=== PATIENT | male | born 1985 | race African-American/Black ===

== ENCOUNTER 2024-11-18 09:28 | Inpatient (IN) | payer MEDICAID, OTHER ==
[~2024-11-18] VITALS: Ht 177.8 cm; Wt 111.0 kg
--- NOTE | 2024-11-18 09:39 | ECG ---
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
--- NOTE | 2024-11-18 10:07 | ED.PDOC ---
HPI Comments 38 y.o male with PMHx of chronic back and hip pain, presents to the ED for a chief complaint of substernal chest pain associated with SOB that started 2-3 days ago. Patient describes pain as sharp and is intermittent. Patient noticed pain presents when he takes Percocet for his chronic pain and noticed his BP increases as well. Patient denies any fever, chills, leg swelling, or recent illness. He denies any social history. Chief Complaint: Chest Pain Time Seen by MD: 09:38 Reviewed Notes: Nurses Notes, Medications, Allergies Allergies: Coded Allergies: NO KNOWN ALLERGIES (Unverified , 11/18/24) Information Source: Patient Mode of Arrival: Ambulatory Severity: Moderate Timing: Days (2-3) Duration: Since onset Location: Substernal Radiation: No Radiation Quality: Sharp Onset: At Rest Cardiac Risk Factors: None PE Risk Factors: None History of: Similar pain in past Modifying Factors: Nothing Associated Signs and Symptoms: SOB Past Medical History Past Medical History (Other): chronic back and hip pain Surgical History: Denies all surgeries Family History Family History: Reviewed,noncontributory to illness Social History Smoker: Non-Smoker Alcohol: Denies ETOH Use Drugs: Denies Drug Use Lives In: Home Constitutional: denies: chills, diaphoresis, fatigue, fever, malaise, sweats, weakness, others EENTM: denies: blurred vision, double vision, ear bleeding, ear discharge, ear drainage, ear pain, ear ringing, eye pain, eye redness, hearing loss, mouth pain, mouth swelling, nasal discharge, nose bleeding, nose congestion, nose pain, photophobia, tearing, throat pain, throat swelling, voice changes, others Respiratory: reports: SOB at rest, shortness of breath; denies: cough, hemoptysis, orthopnea, SOB with excertion, stridor, wheezing, others Cardiovascular: reports: chest pain; denies: dizzy spells, diaphoresis, Dyspnea on exertion, edema, irregular heart beat, left arm pain, lightheadedness, palpitations, PND, syncope, others Gastrointestinal: denies: abdomen distended, abdominal pain, blood streaked bowels, constipated, diarrhea, dysphagia, difficulty swallowing, hematemesis, melena, nausea, poor appetite, poor fluid intake, rectal bleeding, rectal pain, vomiting, others Genitourinary: denies: burning, dysuria, flank pain, frequency, hematuria, incontinence, penile discharge, penile sore, pain, testicle pain, testicle swelling, urgency, others Neurological: denies: dizziness, fainting, headache, left sided numbness, left sided weakness, numbness, paresthesia, pre-existing deficit, right sided numbness, right sided weakness, seizure, speech problems, tingling, tremors, weakness, others Musculoskeletal: denies: back pain, gout, joint pain, joint swelling, muscle pain, muscle stiffness, neck pain, others Integumetry: denies: bruises, change in color, change in hair/nails, dryness, laceration, lesions, lumps, rash, wounds, others Allergic/Immunocompromised: denies: Difficulty Healing, Frequent Infections, H randell, Itching, others Hematologic/Lymphatic: denies: anemia, blood clots, easy bleeding, easy bruising, swollen glands, others Endocrine: denies: excessive hunger, excessive sweating, excessive thirst, excessive urination, flushing, intolerance to cold, intolerance to heat, unexplained weight gain, unexplained weight loss, others Psychiatric: denies: anxiety, bipolar disorder, depression, hopeless, panic disorder, schizophrenia, sleepless, suicidal, others All Other Systems: Reviewed and Negative Physical Exam General Appearance: Moderate Distress HEENT: Normal ENT Inspection, Pharynx Normal, TMs Normal Neck: Full Range of Motion, Non-Tender, Normal, Normal Inspection Respiratory: Chest Non-Tender, Lungs Clear, No Accessory Muscle Use, No Respiratory Distress, Normal Breath Sounds Cardiovascular: No Edema, No JVD, No Murmur, No Gallop, Normal Peripheral Pulses, Regular Rate/Rhythm Breast Exam: Deferred Gastrointestinal: No Organomegaly, Non Tender, No Pulsatile Mass, Normal Bowel Sounds, Soft Genitalia: Deferred Pelvic: Deferred Rectal: Deferred Extremities: No calf tenderness, Normal capillary refill, Normal inspection, Normal range of motion, Non-tender, No pedal edema Musculoskeletal : Apperance: Normal Neurologic: Alert, senior controls technician II-XII nml as Tested, No Motor Deficits, Normal Affect, Normal Mood, No Sensory Deficits Cerebellar Function: Normal Reflexes: Normal Skin: Dry, Normal Color, Warm Peripheral Pulses: 3+ Radial (R), 3+ Radial (L) Lymphatic: No Adenopathy EKG EKG : Pulse Rate (adult): 83 Cardiac Rhythm: NSR Was a procedure done? Was a procedure done?: No CP Differential Dx Differential Diagnosis: A-fib, A-Flutter, Angina, Anxiety / Panic Attack, Atrial Dysrhythmia, Electrolyte Disorder, N/A Differential Diagnosis: Angina, Chest Wall Pain, Costochondritis, Pericarditis X-Ray, Labs, Meds, VS Vital Signs Date Time Temp Pulse Resp B/P (MAP) Pulse Ox O2 Delivery O2 Flow Rate FiO2 11/18/24 10:25 71 11/18/24 10:07 83 11/18/24 09:36 83 11/18/24 09:32 98.9 86 18 116/85 97 98.9 Lab Test 11/18/24 09:44 Range/Units White Blood Count 4.0 L 4.4-10.8 10^3/uL Red Blood Count 5.57 4.5-5.90 10^6/uL Hemoglobin 16.3 13.5-17.5 g/dL Hematocrit 48.4 41.0-53.0 % Mean Corpuscular Volume 87.0 80.0-100.0 fL Mean Corpuscular Hemoglobin 29.3 28.0-32.0 pg Mean Corpuscular Hemoglobin Concent 33.7 32.0-36.0 g/dL Red Cell Distribution Width 14.3 11.8-14.3 % Platelet Count 206 140-450 10^3/uL Mean Platelet Volume 8.4 6.9-10.8 fL Neutrophils (%) (Auto) 44.8 37.0-80.0 % Lymphocytes (%) (Auto) 34.6 10.0-50.0 % Monocytes (%) (Auto) 9.8 0.0-12.0 % Eosinophils (%) (Auto) 9.8 H 0.0-7.0 % Basophils (%) (Auto) 1.0 0.0-2.0 % Neutrophils # (Auto) 1.8 1.6-8.6 10 ^3/uL Lymphocytes # (Auto) 1.4 0.4-5.4 10 ^3/uL Monocytes # (Auto) 0.4 0-1.3 10 ^3/uL Eosinophils # (Auto) 0.4 0-0.8 10 ^3/uL Basophils # (Auto) 0 0-0.2 10 ^3/uL Nucleated Red Blood Cells 0.5 % D-Dimer, Quantitative < 0.19 0.0-0.49 mg/L FEU Sodium Level 142 136-145 mmol/L Potassium Level 4.7 3.5-5.1 mmol/L Chloride Level 107 98-107 mmol/L Carbon Dioxide Level 29 20-31 mmol/L Anion Gap 6 5-15 Blood Urea Nitrogen 15 9-23 mg/dL Creatinine 1.27 0.700-1.30 mg/dL Glomerular Filtration Rate Calc 74 >90 mL/min BUN/Creatinine Ratio 11.8 10.0-20.0 Serum Glucose 99 74-106 mg/dL Calcium Level 8.8 8.7-10.4 mg/dL Troponin I High Sensitivity 56 *H </=54 ng/L Patient alert. Complaining of chest pain. EKG reviewed does not show any acute process. Vitals stable. Chronic changes. History of chronic pain syndrome on Percocet. Troponin elevated. Was given Lovenox. Explained to the patient. Continue monitoring. Time of 1ST Reevaluation: 10:30 Reevaluation 1ST: Unchanged Patient Education/Counseling: Diagnosis, Treatment, Prognosis Family Education/Counseling: No Family Present SEPSIS Sepsis Screen Date sepsis recognized/suspect: Nov 18, 2024 Time Sepsis recognized/suspect: 931 Recent Procedure: No On Antibiotic Therapy: No Respiratory Rate >20: No Heart Rate >90: No Temp<36 C (96.8 F) or >38.3 C: No SBP <90 or MAP <65 mmHG: No New Acute Mental Status Change: No Is the patient on CPAP, BIPAP,: No Physician Orders Troponin-I Hs (11/18/24 10:36) Troponin-I Hs (11/18/24 12:36) Electrocardigram (11/18/24 10:36) Electrocardigram (11/18/24 12:36) Vital Signs Date Time Temp Pulse Resp B/P (MAP) Pulse Ox O2 Delivery O2 Flow Rate FiO2 11/18/24 10:25 71 11/18/24 10:07 83 11/18/24 09:36 83 11/18/24 09:32 98.9 86 18 116/85 97 98.9 Laboratory Tests Test 11/18/24 09:44 White Blood Count 4.0 10^3/uL (4.4-10.8) L Departure 1 Departure Time of Disposition: 11:21 Impression: Primary Impression: NSTEMI (non-ST elevated myocardial infarction) Disposition: 09 ADMITTED INPATIENT Admit to: Med Surg Condition: Guarded Critical Care Note Critical Care Time?: Yes (90 min-critical care time only) Stability Stability form required: No I personally scribed for LESLIE LUQUE MD ([email or web address]) on 11/18/24 at 10:07. Electronically submitted by Tarsha Bains ([facility]). LESLIE LUQUE MD Nov 18, 2024 10:07
[2024-11-18 10:31] LABS: Potassium 4.7 mmol/L (3.5-5.1); Sodium 142 mmol/L (136-145)
[2024-11-18 10:32] LABS: Anion Gap 6 (5-15); Calcium 8.8 mg/dL (8.7-10.4); Carbon Dioxide 29 mmol/L (20-31)
[2024-11-18 10:35] LABS: Hematocrit 48.4 % (41.0-53.0); Hemoglobin 16.3 g/dL (13.5-17.5); Mean Corpuscular Hemoglobin 29.3 pg (28.0-32.0); Mean Corpuscular Volume 87.0 fL (80.0-100.0); Nucleated Red Blood Cells % 0.5 %
[2024-11-18 10:37] LABS: BUN/Creatinine Ratio 11.8 (10.0-20.0); Blood Urea Nitrogen 15 mg/dL (9-23); Chloride 107 mmol/L (98-107); Glucose 99 mg/dL (74-106)
[2024-11-18] MEDS ORDERED: PANT40TA57 PO (12:28)
[2024-11-18] MEDS ORDERED: GAB100C PO (12:28)
[2024-11-18 12:30] VITALS: PULSE 74; RESP 17; O2SAT 97
[2024-11-18] MEDS ORDERED: NITROGLYCERIN 0.4 MG SL TAB SL PRN ×2 (12:30)
[2024-11-18] MEDS ORDERED: ACETAMINOPHEN 325 MG TAB PO PRN (12:30)
[2024-11-18] MEDS ORDERED: MORPHINE SULFATE 4 MG/ML SYR/VIAL IV PRN (12:30)
[2024-11-18] MEDS ORDERED: ONDANSETRON HCL 4 MG/2 ML VIAL IV PRN (12:30)
[2024-11-18] MEDS ORDERED: MORPHINE SULFATE INJ 2 MG/ml SYRG IV PRN (12:30)
--- NOTE | 2024-11-18 12:30 | DVHHP2 ---
History of Present Illness Reason for Visit: Chest pain History of Present Illness Jose Bahena is a 38-year-old male with past medical history of appendectomy, chronic back pain and chronic right hip pain who presents to the ED with chest pain and shortness of breath that started 2 days ago, he reports that the pain is 5/10 sharp and intermittent in nature. He reports that the pain just "fades" away. He reports that the pain is nonradiating. He also reports that he takes Percocet for his chronic back pain and chronic right hip pain. He denies any fractures, trauma or injury. Patient denies any recent travels, recent sick contacts, recent ingestion of spoiled food, fever, chills, lightheadedness, weakness, dizziness, abdominal pain, nausea, vomiting, diarrhea, or urinary symptoms. Past Medical History Chronic back pain Chronic right hip pain Past Surgical History: Appendectomy Family History: Cancer, DM, Hypertension, Other (Mom with [place], CHF, hypertension, diabetes, and skin cancer. Dad unknown.) Smoke: No ALCOHOL: none Drugs: None Lives: with Family Domestic Violence: Neg Review of Systems Cardiovascular: Chest Pain Allergies: Coded Allergies: NO KNOWN ALLERGIES (Unverified , 11/18/24) Exam Vital Signs Vital Signs Date Time Temp Pulse Resp B/P (MAP) Pulse Ox O2 Delivery O2 Flow Rate FiO2 11/18/24 11:19 98.4 67 18 123/72 (89) 98 98.4 General Appearance: Alert, Oriented X3, Cooperative, No acute distress HEENT: Atraumatic, PERRLA, EOMI, Mucous membr. moist/pink Respiratory: Clear to auscultation, Normal air movement Cardiovascular: Regular rate, Normal S1, Normal S2, No murmurs Abdominal: Normal bowel sounds, Soft Extremities: No edema, Normal pulses Skin: No significant lesion Neuro: Normal speech, Strength at 5/5 X4 ext, Normal tone, Sensation intact Psych/Mental Status: Mental status NL, Mood NL Labs/Xrays Labs Test 11/18/24 09:44 Range/Units White Blood Count 4.0 L 4.4-10.8 10^3/uL Red Blood Count 5.57 4.5-5.90 10^6/uL Hemoglobin 16.3 13.5-17.5 g/dL Hematocrit 48.4 41.0-53.0 % Mean Corpuscular Volume 87.0 80.0-100.0 fL Mean Corpuscular Hemoglobin 29.3 28.0-32.0 pg Mean Corpuscular Hemoglobin Concent 33.7 32.0-36.0 g/dL Red Cell Distribution Width 14.3 11.8-14.3 % Platelet Count 206 140-450 10^3/uL Mean Platelet Volume 8.4 6.9-10.8 fL Neutrophils (%) (Auto) 44.8 37.0-80.0 % Lymphocytes (%) (Auto) 34.6 10.0-50.0 % Monocytes (%) (Auto) 9.8 0.0-12.0 % Eosinophils (%) (Auto) 9.8 H 0.0-7.0 % Basophils (%) (Auto) 1.0 0.0-2.0 % Neutrophils # (Auto) 1.8 1.6-8.6 10 ^3/uL Lymphocytes # (Auto) 1.4 0.4-5.4 10 ^3/uL Monocytes # (Auto) 0.4 0-1.3 10 ^3/uL Eosinophils # (Auto) 0.4 0-0.8 10 ^3/uL Basophils # (Auto) 0 0-0.2 10 ^3/uL Nucleated Red Blood Cells 0.5 % D-Dimer, Quantitative < 0.19 0.0-0.49 mg/L FEU Sodium Level 142 136-145 mmol/L Potassium Level 4.7 3.5-5.1 mmol/L Chloride Level 107 98-107 mmol/L Carbon Dioxide Level 29 20-31 mmol/L Anion Gap 6 5-15 Blood Urea Nitrogen 15 9-23 mg/dL Creatinine 1.27 0.700-1.30 mg/dL Glomerular Filtration Rate Calc 74 >90 mL/min BUN/Creatinine Ratio 11.8 10.0-20.0 Serum Glucose 99 74-106 mg/dL Calcium Level 8.8 8.7-10.4 mg/dL Troponin I High Sensitivity 56 *H </=54 ng/L XY CHEST XRAY 1 VIEW, HISTORY: chest pain COMPARISON: None None TECHNICAL DATA: 1 view of the chest was obtained. FINDINGS: Lines and tubes: None Cardiomediastinal silhouette: normal Pulmonary vasculature: normal Lung expansion: normal Lung airspace: normal Lung interstitium: normal Pleura: normal Pneumothorax: no Bones: Unremarkable Other: no IMPRESSION: No acute intrathoracic abnormality. SEPSIS Sepsis Screen Date sepsis recognized/suspect: Nov 18, 2024 Time Sepsis recognized/suspect: 09 Recent Procedure: No On Antibiotic Therapy: No Respiratory Rate >20: No Heart Rate >90: No Temp<36 C (96.8 F) or >38.3 C: No SBP <90 or MAP <65 mmHG: No New Acute Mental Status Change: No Is the patient on CPAP, BIPAP,: No Physician Orders Troponin-I Hs (11/18/24 10:36) Troponin-I Hs (11/18/24 12:36) Electrocardigram (11/18/24 10:36) Electrocardigram (11/18/24 12:36) Vital Signs Date Time Temp Pulse Resp B/P (MAP) Pulse Ox O2 Delivery O2 Flow Rate FiO2 11/18/24 11:19 98.4 67 18 123/72 (89) 98 98.4 11/18/24 10:25 71 11/18/24 10:07 83 11/18/24 09:36 83 11/18/24 09:32 98.9 86 18 116/85 97 98.9 Laboratory Tests Test 11/18/24 09:44 White Blood Count 4.0 10^3/uL (4.4-10.8) L Assessment/Plan Assessment/Plan Assessment NSTEMI likely type 2 Obesity History of Chronic back pain History of Chronic right hip pain History of appendectomy Plan Admit to tele Aspirin + statin Antiemetics Pain management D-dimer EKG noted Trend troponins UA UDS ACS workup Echo ordered Chest x-ray ordered Diet Home medications reconciled DVT prophylaxis-Lovenox PUD prophylaxis-PPIs Discussed plan of care with patient and nurse Consider cardiac consult if troponins elevate Counseled patient on lifestyle modifications, diet, and exercise [id number] Preventive counseling healthy eating habits, physical activity, and regular checkups Plan discussed with: Patient Date of Service: Nov 18, 2024 Billing Provider: BERTHA WAKEFIELD Common Visit Codes: [id number] INP/OBS CARE (HIGH) Secondary Visit Codes: [id number] COUNSELING IND BERTHA WAKEFIELD Nov 18, 2024 12:30
--- NOTE | 2024-11-18 13:11 | DVH ---
XY CHEST XRAY 1 VIEW, HISTORY: chest pain COMPARISON: None None TECHNICAL DATA: 1 view of the chest was obtained. FINDINGS: Lines and tubes: None Cardiomediastinal silhouette: normal Pulmonary vasculature: normal Lung expansion: normal Lung airspace: normal Lung interstitium: normal Pleura: normal Pneumothorax: no Bones: Unremarkable Other: no IMPRESSION: No acute intrathoracic abnormality.
--- NOTE | 2024-11-18 13:36 | ECG ---
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
[2024-11-18] MEDS: GABAPENTIN 100 MG CAP PO SCH (13:52)
[2024-11-18] MEDS: ENOXAPARIN SOD 100 MG/1 ML SYRINGE SC ONE (13:52)
[2024-11-18 13:56] VITALS: BP 111/80; PULSE 80; PULSE 86; RESP 16; TEMP 98.1; O2SAT 97; O2SAT 98
[2024-11-18 13:57] VITALS: BP 111/80; PULSE 80; RESP 16; TEMP 98.1; O2SAT 98
--- NOTE | 2024-11-18 14:30 | ECG ---
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
[2024-11-18] MEDS: HYDROcodone-ACET 5/325MG TAB PO PRN (14:55)
[2024-11-18] MEDS ORDERED: NAP500T PO (16:54)
[2024-11-18] MEDS ORDERED: LITH300C3 PO (16:57)
[2024-11-18] MEDS ORDERED: HYDR50TA69 PO (16:57)
[2024-11-18] MEDS ORDERED: BUPR150T8 PO (16:57)
[2024-11-18 17:00] VITALS: BP 115/71; PULSE 70; RESP 18; TEMP 98.5; O2SAT 97
[2024-11-18 18:57] LABS: Urine Protein, UAD Negative (Negative)
[2024-11-18 19:13] LABS: Opiate Scree,Urine Neg (NEGATIVE)
[2024-11-18 19:21] LABS: Amphetamine Screen, Urine Neg (NEGATIVE); Barbiturate Scree,Urine Neg (NEGATIVE); Benzodiazephine Screen, Urine Neg (NEGATIVE); Cannabinoid Screen, Urine Neg (NEGATIVE); Phencyclidine Screen, Urine Neg (NEGATIVE)
[2024-11-18 19:46] LABS: Cocaine Screen, Urine Neg (NEGATIVE)
[2024-11-18 20:00] VITALS: PULSE 74
[2024-11-18] MEDS: ATORVASTATIN 20 MG TAB PO SCH (20:49)
[2024-11-18 21:00] VITALS: BP 115/78; PULSE 85; RESP 20; TEMP 98.8; O2SAT 96
[2024-11-19] VITALS (8 sets, daily range): BP systolic 101–127; BP diastolic 61–90; PULSE 64–85; RESP 16–19; TEMP 97.4–98.1; O2SAT 94–99
[2024-11-19] MEDS: OXYCODONE W/ ACETAMINOPHEN 5/325MG TABLET PO ONE (02:30)
[2024-11-19] MEDS: PANTOPRAZOLE 40 MG TAB PO SCH (05:25)
[2024-11-19 07:51] LABS: Hematocrit 45.6 % (41.0-53.0); Hemoglobin 15.1 g/dL (13.5-17.5); Mean Corpuscular Hemoglobin 29.0 pg (28.0-32.0); Mean Corpuscular Volume 87.5 fL (80.0-100.0); Nucleated Red Blood Cells % 0.2 %
[2024-11-19 08:07] LABS: Chloride 103 mmol/L (98-107); Potassium 4.1 mmol/L (3.5-5.1); Sodium 138 mmol/L (136-145)
[2024-11-19 08:08] LABS: Anion Gap 9 (5-15); Calcium 8.8 mg/dL (8.7-10.4); Carbon Dioxide 26 mmol/L (20-31)
[2024-11-19 08:13] LABS: BUN/Creatinine Ratio 9.6 (10.0-20.0); Blood Urea Nitrogen 11 mg/dL (9-23); Glucose 90 mg/dL (74-106); Triglycerides 82 mg/dL (< 150)
[2024-11-19 08:14] LABS: Magnesium 2.0 mg/dL (1.6-2.6)
[2024-11-19 08:15] LABS: Cholesterol 158 mg/dL (< 200)
[2024-11-19 08:16] LABS: HDL Cholesterol 39 mg/dL (40-59)
[2024-11-19] MEDS: ENOXAPARIN SOD 40 MG/0.4 ML SYRINGE SC SCH (10:27)
--- NOTE | 2024-11-19 10:54 | DVHPN2 ---
Subjective back pain. takes percocet 10 tid at home Reviewed: Care Plan, H&P, Labs, Medications, Previous Orders, Radiology Changes from previous H/P or p: No Changes Cardiovascular: Chest Pain Objective Vitals Vital Signs Date Time Temp Pulse Resp B/P (MAP) Pulse Ox O2 Delivery O2 Flow Rate FiO2 11/19/24 09:00 97.5 64 17 110/75 (87) 97 97.5 11/18/24 20:00 Room Air* 0 21 Intake/Output Intake and Output 11/19/24 07:00 Intake Total 2065 ml Balance 2065 ml Intake Oral 2065 ml # Voids 3 General Appearance: Alert, Oriented X3, Cooperative, No acute distress HEENT: Atraumatic Lungs: Clear to auscultation Cardiovascular: Regular rate Abdomen: Normal bowel sounds, Soft Medications Current Medications Medications Dose Ordered Sig/Joseph Route Start Time Stop Time Status Last Admin Dose Admin Aspirin 81 mg DAILY PO 11/19/24 10:00 11/19/24 10:26 81 MG Atorvastatin Calcium 40 mg HS PO 11/18/24 22:00 11/18/24 20:49 40 MG Acetaminophen 650 mg Q6HP PRN PO 11/18/24 12:30 Ondansetron HCl 4 mg Q4HP PRN IV 11/18/24 12:30 Nitroglycerin 0.4 mg Q5MINP PRN SL 11/18/24 12:30 Morphine Sulfate 2 mg Q30M PRN IV 11/18/24 12:30 Gabapentin 100 mg TID PO 11/18/24 14:00 11/19/24 05:25 100 MG Pantoprazole Sodium 40 mg DAILY@0600 PO 11/19/24 06:00 11/19/24 05:25 40 MG Enoxaparin Sodium 40 mg DAILY SC 11/19/24 10:00 11/19/24 10:27 40 MG Acetaminophen/ Hydrocodone Bitart 1 tab Q4HPRN PRN PO 11/18/24 14:00 11/19/24 10:27 1 TAB Laboratory Results Laboratory Tests 11/19/24 05:48 Chemistry Test 11/19/24 05:48 Calcium Level 8.8 mg/dL (8.7-10.4) Magnesium Level 2.0 mg/dL (1.6-2.6) Lipid panel Test 11/19/24 05:48 Cholesterol Level 158 mg/dL (< 200) HDL Cholesterol 39 mg/dL (40-59) L Triglycerides Level 82 mg/dL (< 150) Urinalysis Test 11/18/24 18:17 Urine Color Light-yellow (Yellow) Urine Clarity Clear (Clear) Urine pH 6.5 (5.0-9.0) Urine Specific [place] 1.015 (1.001-1.035) Urine Protein Negative (Negative) Urine Ketones Negative (Negative) Urine Blood Negative /uL (Negative) Urine Nitrite Negative (Negative) Urine Bilirubin Negative (Negative) Urine Urobilinogen Normal mg/dL (Negative) Urine Leukocyte Esterase Negative /uL (Negative) Urine RBC None seen /hpf (0 - 3) Urine Microscopic WBC 1 /HPF (0-3) Urine Squamous Epithelial Cells None seen /hpf (<5) Urine Bacteria None seen /hpf (None Seen) Urine Glucose Normal mg/dL (Normal) Assessment/Plan Assessment/Plan Chest pain /non-STEMI Chronic back pain Chronic right hip pain Leukopenia Obesity Plan: Increase Percocet to the dose that patient takes at home wishes 10 mg 3 times a day. Cardiology. Further plan per orders Plan discussed with: Patient Date of Service: Nov 19, 2024 Billing Provider: GIOVANNY SOOD MD Common Visit Codes: [id number] INP/OBS CARE(HIGH) GIOVANNY SOOD MD Nov 19, 2024 10:54
[2024-11-19] MEDS: OXYCODONE W/ ACETAMINOPHEN 5/325MG TABLET PO PRN (14:07)
--- NOTE | 2024-11-19 17:18 | DVHINCON2 ---
Date Seen: Nov 19, [address] Garza Reason for Consultation Chest pain History of Present Illness 38-year-old male with past medical history of chronic back pain and obesity presents to the ED with complaint of chest pain. He described the pain as intermittent, sharp, pressure-like, nonradiating, and beginning two days ago. In the ED, troponin was mildly elevated at 54, followed by subsequent normal rachana ues. Chest x-ray was unremarkable, and 12 lead ECG revealed normal sinus rhythm without acute ischemic changes. He denies associated diaphoresis, dyspnea, or syncope. He also denies history of cardiovascular disease, tobacco, alcohol, or illicit drug use. Past Medical History As stated in HPI Past Surgical History Denies Family History: Cardiovascular disease G8 MOTHER Diabetes mellitus G8 MOTHER Hypertension G8 MOTHER Family History Reviewed, non-contributory to the management of this case. Social History The patient lives at home, denies smoking, alcohol or illicit drugs abuse. Allergies: Coded Allergies: NO KNOWN ALLERGIES (Unverified , 11/18/24) Home Meds Reported Medications Delafield Carbonate (Delafield Carbonate) 300 Mg Cap, 300 MG PO DAILY for 30 Days, MG 11/18/24 Bupropion Hcl (Wellbutrin Sr) 150 Mg Tab, 150 MG PO DAILY, TAB 11/18/24 Hydroxyzine Hcl (Hydroxyzine Hcl) 50 Mg Tab, 50 MG PO TID for 30 Days, MG 11/18/24 Naproxen (NAPROSYN TABLET) 500 Mg Tb, 1 TAB PO BID, #60 TAB 1 Refill 11/18/24 Gabapentin (Gabapentin) 100 Mg Cap, 1-2 CAP PO TID 11/18/24 Pantoprazole Sodium Sesquihydr (Pantoprazole Sodium Dr) 40 Mg Tab, 1 TAB PO DAILY 11/18/24 Current Medications Current Medications Medications (Trade) Dose Ordered Sig/Joseph Route PRN Reason Start Time Stop Time Status Last Admin Aspirin 81 mg DAILY PO 11/19/24 10:00 11/19/24 10:26 Atorvastatin Calcium (Lipitor) 40 mg HS PO 11/18/24 22:00 11/18/24 20:49 Pantoprazole Sodium (Protonix Tablet) 40 mg DAILY@0600 PO 11/19/24 06:00 11/19/24 05:25 Enoxaparin Sodium (Lovenox) 40 mg DAILY SC 11/19/24 10:00 11/19/24 10:27 Oxycodone/ Acetaminophen (Percocet 5/ 325MG Tablet) 2 tab TID PRN PO SEVERE PAIN (7-10 PAIN SCALE) 11/19/24 11:00 11/19/24 14:07 Review of Systems Constitutional: No symptom reported Ears, Nose, & Throat: No symptom reported Eyes: No symptom reported Neurological: No symptoms reported Pulmonary/Respiratory: No symptom reported Cardiovascular: Chest pain Gastrointestinal: No symptom reported Genitourinary: No symptom reported Musculoskeletal: No symptom reported Skin: No symptom reported Psychiatric: No symptom reported Endocrine: No symptom reported Hemotologic/Lymphatic: No symptom reported Vital Signs Vital Signs Date Time Temp Pulse Resp B/P (MAP) Pulse Ox O2 Delivery O2 Flow Rate FiO2 11/19/24 17:00 98.1 77 17 101/61 (74) 96 98.1 11/19/24 08:00 Room Air* 0 21 Physical Exam INITIAL VITAL SIGNS: Reviewed by me GENERAL: Alert and interactive. No acute distress. HEAD: Head is normocephalic and atraumatic. EYES: EOMI, PERRL. No scleral icterus. No conjunctival injection. ENT: Moist mucous membranes. NECK: Supple, No masses, Full range of motion. RESPIRATORY: No tachypnea. Clear breath sounds bilaterally. No wheezing, rales, rhonchi. CV: Regular rate and rhythm. No murmurs, rubs, or gallops. GI/: Active bowel sounds, soft, nondistended, nontender. No guarding. No rebound. No masses. No CVA tenderness. INTEGUMENTARY: Warm and dry. No obvious rashes. NEUROLOGIC: Alert and oriented. Face is symmetric. Speech is normal. Moves all extremities equally. Labs/Diagnostic Data Labs Test 11/19/24 05:48 11/18/24 18:17 11/18/24 09:44 Range/Units White Blood Count 3.5 L 4.4-10.8 10^3/uL Red Blood Count 5.21 4.5-5.90 10^6/uL Hemoglobin 15.1 13.5-17.5 g/dL Hematocrit 45.6 41.0-53.0 % Mean Corpuscular Volume 87.5 80.0-100.0 fL Mean Corpuscular Hemoglobin 29.0 28.0-32.0 pg Mean Corpuscular Hemoglobin Concent 33.2 32.0-36.0 g/dL Red Cell Distribution Width 14.3 11.8-14.3 % Platelet Count 187 140-450 10^3/uL Mean Platelet Volume 8.8 6.9-10.8 fL Neutrophils (%) (Auto) 30.2 L 37.0-80.0 % Lymphocytes (%) (Auto) 50.1 H 10.0-50.0 % Monocytes (%) (Auto) 10.7 0.0-12.0 % Eosinophils (%) (Auto) 7.9 H 0.0-7.0 % Basophils (%) (Auto) 1.1 0.0-2.0 % Neutrophils # (Auto) 1.0 L 1.6-8.6 10 ^3/uL Lymphocytes # (Auto) 1.7 0.4-5.4 10 ^3/uL Monocytes # (Auto) 0.4 0-1.3 10 ^3/uL Eosinophils # (Auto) 0.3 0-0.8 10 ^3/uL Basophils # (Auto) 0 0-0.2 10 ^3/uL Nucleated Red Blood Cells 0.2 % Erythrocyte Sedimentation Rate 2 0-20 mm/hr Sodium Level 138 136-145 mmol/L Potassium Level 4.1 3.5-5.1 mmol/L Chloride Level 103 98-107 mmol/L Carbon Dioxide Level 26 20-31 mmol/L Anion Gap 9 5-15 Blood Urea Nitrogen 11 9-23 mg/dL Creatinine 1.14 0.700-1.30 mg/dL Glomerular Filtration Rate Calc 84 >90 mL/min BUN/Creatinine Ratio 9.6 L 10.0-20.0 Serum Glucose 90 74-106 mg/dL Calcium Level 8.8 8.7-10.4 mg/dL Magnesium Level 2.0 1.6-2.6 mg/dL Troponin I High Sensitivity 54 </=54 ng/L C-Reactive Protein High Sensitivity 0.04 <1.0 mg/dL Triglycerides Level 82 < 150 mg/dL Cholesterol Level 158 < 200 mg/dL LDL Cholesterol 107 H < 100 mg/dL HDL Cholesterol 39 L 40-59 mg/dL Urine Color Light-yellow Yellow Urine Clarity Clear Clear Urine pH 6.5 5.0-9.0 Urine Specific [place] 1.015 1.001-1.035 Urine Protein Negative Negative Urine Ketones Negative Negative Urine Blood Negative Negative /uL Urine Nitrite Negative Negative Urine Bilirubin Negative Negative Urine Urobilinogen Normal Negative mg/dL Urine Leukocyte Esterase Negative Negative /uL Urine RBC None seen 0 - 3 /hpf Urine Microscopic WBC 1 0-3 /HPF Urine Squamous Epithelial Cells None seen <5 /hpf Urine Bacteria None seen None Seen /hpf Urine Glucose Normal Normal mg/dL Urine Opiates Screen Neg NEGATIVE Urine Fentanyl Screen Neg NEGATIVE Urine Barbiturates Screen Neg NEGATIVE Urine Phencyclidine Screen Neg NEGATIVE Urine Amphetamines Screen Neg NEGATIVE Urine Benzodiazepines Screen Neg NEGATIVE Urine Cocaine Screen Neg NEGATIVE Urine Cannabinoids Screen Neg NEGATIVE D-Dimer, Quantitative < 0.19 0.0-0.49 mg/L FEU Hemoglobin A1c 5.4 <5.7 % A1C Thyroid Stimulating Hormone (TSH) 1.84 0.55-4.78 uIU/mL Free Thyroxine (T4) Calculated 1.10 0.89-1.76 ng/dL PROCEDURE(s): CXR1 - CHEST XRAY 1 VIEW REASON: chest pain ORDER NUMBER(s): [id number], ACCESSION NUMBER(s): [id number] XY CHEST XRAY 1 VIEW, HISTORY: chest pain COMPARISON: None None TECHNICAL DATA: 1 view of the chest was obtained. FINDINGS: Lines and tubes: None Cardiomediastinal silhouette: normal Pulmonary vasculature: normal Lung expansion: normal Lung airspace: normal Lung interstitium: normal Pleura: normal Pneumothorax: no Bones: Unremarkable Other: no IMPRESSION: No acute intrathoracic abnormality. Assessment Acute chest pain to rule out CAD (HEART score 2) Mildly elevated troponin Chronic back pain Obesity Plan/Recommendation (Dr. Block ): * Chest pain protocol-- Continue telemetry monitoring * Transthoracic echocardiogram to evaluate cardiac function and rule out structural disease * Scheduled Cardiolite stress test for ischemic evaluation * If both studies are unremarkable patient may be cleared from a cardiac standpoint * Counseled on risk factor modifications such as weight loss diet and exercise * Continue pain management for chronic back pain per primary team This medical document was created using an electronic medical record system with voice recognition software and computerized dictation system. Although this document has been carefully reviewed, there might still be some phonetic and typographical errors. Occasional wrong-word or ``sound-alike substitutions may have occurred due to the inherent limitations of voice recognition software. These areas are purely typographical due to imperfections of the software programs and do not reflect any compromise in the patient's medical care. Please read the chart carefully and recognize, using context, where these s ubstitutions have occurred. Plan discussed with: Patient Plan discussed with: Patient NYHA Physical activity limitations: NA Date of Service: Nov 19, 2024 Billing Provider: MAG BLOCK MD Cardiology Common Codes: NOT BILLABLE Cardiology Consultation Codes: [id number] CONSULT <45MIN LOUISE ESCALANTE MANAGER POOL Nov 19, 2024 17:18
[2024-11-20] VITALS (8 sets, daily range): BP systolic 102–130; BP diastolic 50–84; PULSE 72–86; RESP 16–18; TEMP 97.7–98.7; O2SAT 93–98
[2024-11-20 08:02] LABS: Hematocrit 46.6 % (41.0-53.0); Hemoglobin 16.2 g/dL (13.5-17.5); Mean Corpuscular Hemoglobin 29.8 pg (28.0-32.0); Mean Corpuscular Volume 85.7 fL (80.0-100.0); Nucleated Red Blood Cells % 0.8 %
--- NOTE | 2024-11-20 09:46 | DVHSR ---
APPROVED REPORT EXAM: Two-dimensional and M-mode echocardiogram with Doppler and color Doppler. Blood Pressure: 110/75 mmHg INDICATION Chest Pain RISK FACTORS Height: 5'10", Weight: 244 DIMENSIONS LVDd4.9 (3.8-5.7cm)LA (2D)3.4 (1.9-4.0cm)Aortic Root3.4 (2.0-3.7cm) LVDs3.2 (2.5-4.0cm)LA (MM) (1.9-4.0cm)Aortic Cusp Exc2.1 (1.5-2.0cm) EF (%) 63.0 (55-70%)Rt. Atrium4.1 (1.9-4.0cm)Asc. Aorta cm IVSd1.2 (0.7-1.1cm)RV (D)4.0 (1.8-2.4cm) PWd1.2 (0.7-1.1cm) Mitral Valve MitralMitral Stenosis E wave0.95m/sMV Mean GR.mmHg A wave0.87m/sMV Peak GR.mmHg E/A ratio1.12D MVAcm2 DECEL [id number] 1/2 Timems Aortic Valve Aortic ValveAortic Stenosis V11.06m/Alejandra Mean GR.4mmHg V21.28m/Alejandra Peak GR.7mmHg LVOT Diameter2.2 (1.8-2.4cm)Doppler AVA3.15cm2 Pulmonic Valve V20.94m/s Tricuspid Valve TR Velocity2.83m/s [id number] Conclusion lvef 60 % mild lvh normal rv function but mild enlargement no severe valve abnormalities noted
--- NOTE | 2024-11-20 15:24 | DVHPN2 ---
Subjective Better but still some pain Reviewed: Care Plan, H&P, Labs, Medications, Previous Orders, Radiology Changes from previous H/P or p: No Changes Cardiovascular: Chest Pain Objective Vitals Vital Signs Date Time Temp Pulse Resp B/P (MAP) Pulse Ox O2 Delivery O2 Flow Rate FiO2 11/20/24 13:00 98.7 75 18 130/82 (98) 95 98.7 11/20/24 08:00 Room Air* 0 21 Intake/Output Intake and Output 11/20/24 07:00 Intake Total 1700 ml Balance 1700 ml Intake Oral 1700 ml # Voids 8 General Appearance: Alert, Oriented X3, Cooperative, No acute distress HEENT: Atraumatic Lungs: Clear to auscultation Cardiovascular: Regular rate Abdomen: Normal bowel sounds, Soft Medications Current Medications Medications Dose Ordered Sig/Joseph Route Start Time Stop Time Status Last Admin Dose Admin Aspirin 81 mg DAILY PO 11/19/24 10:00 11/20/24 09:42 81 MG Atorvastatin Calcium 40 mg HS PO 11/18/24 22:00 11/19/24 20:26 40 MG Acetaminophen 650 mg Q6HP PRN PO 11/18/24 12:30 Ondansetron HCl 4 mg Q4HP PRN IV 11/18/24 12:30 Nitroglycerin 0.4 mg Q5MINP PRN SL 11/18/24 12:30 Morphine Sulfate 2 mg Q30M PRN IV 11/18/24 12:30 Gabapentin 100 mg TID PO 11/18/24 14:00 11/20/24 13:31 100 MG Pantoprazole Sodium 40 mg DAILY@0600 PO 11/19/24 06:00 11/20/24 06:33 40 MG Enoxaparin Sodium 40 mg DAILY SC 11/19/24 10:00 11/20/24 09:42 40 MG Acetaminophen/ Hydrocodone Bitart 1 tab Q4HPRN PRN PO 11/18/24 14:00 11/19/24 10:27 1 TAB Oxycodone/ Acetaminophen 2 tab TID PRN PO 11/19/24 11:00 11/20/24 13:32 2 TAB Laboratory Results Laboratory Tests 11/19/24 05:48 11/20/24 06:48 Urinalysis Test 11/18/24 18:17 Urine Color Light-yellow (Yellow) Urine Clarity Clear (Clear) Urine pH 6.5 (5.0-9.0) Urine Specific [place] 1.015 (1.001-1.035) Urine Protein Negative (Negative) Urine Ketones Negative (Negative) Urine Blood Negative /uL (Negative) Urine Nitrite Negative (Negative) Urine Bilirubin Negative (Negative) Urine Urobilinogen Normal mg/dL (Negative) Urine Leukocyte Esterase Negative /uL (Negative) Urine RBC None seen /hpf (0 - 3) Urine Microscopic WBC 1 /HPF (0-3) Urine Squamous Epithelial Cells None seen /hpf (<5) Urine Bacteria None seen /hpf (None Seen) Urine Glucose Normal mg/dL (Normal) Assessment/Plan Assessment/Plan Chest pain /non-STEMI Chronic back pain Chronic right hip pain Leukopenia Obesity Plan: Stress test tomorrow. Possible home if negative Plan discussed with: Patient Date of Service: Nov 20, 2024 Billing Provider: GIOVANNY SOOD MD Common Visit Codes: [id number] INP/OBS CARE(HIGH) GIOVANNY SOOD MD Nov 20, 2024 15:24
--- NOTE | 2024-11-20 16:44 | DVHPN2 ---
Subjective No cardiac event reported Reviewed: Care Plan, H&P, Labs, Medications, Previous Orders, Radiology Changes from previous H/P or p: No Changes Cardiovascular: Chest Pain Objective Vitals Vital Signs Date Time Temp Pulse Resp B/P (MAP) Pulse Ox O2 Delivery O2 Flow Rate FiO2 11/20/24 13:00 98.7 75 18 130/82 (98) 95 98.7 11/20/24 08:00 Room Air* 0 21 Intake/Output Intake and Output 11/20/24 07:00 Intake Total 1700 ml Balance 1700 ml Intake Oral 1700 ml # Voids 8 General Appearance: Alert, Oriented X3, Cooperative, No acute distress HEENT: Atraumatic Lungs: Clear to auscultation Cardiovascular: Regular rate Abdomen: Normal bowel sounds, Soft Medications Current Medications Medications Dose Ordered Sig/Joseph Route Start Time Stop Time Status Last Admin Dose Admin Aspirin 81 mg DAILY PO 11/19/24 10:00 11/20/24 09:42 81 MG Atorvastatin Calcium 40 mg HS PO 11/18/24 22:00 11/19/24 20:26 40 MG Acetaminophen 650 mg Q6HP PRN PO 11/18/24 12:30 Ondansetron HCl 4 mg Q4HP PRN IV 11/18/24 12:30 Nitroglycerin 0.4 mg Q5MINP PRN SL 11/18/24 12:30 Morphine Sulfate 2 mg Q30M PRN IV 11/18/24 12:30 Gabapentin 100 mg TID PO 11/18/24 14:00 11/20/24 13:31 100 MG Pantoprazole Sodium 40 mg DAILY@0600 PO 11/19/24 06:00 11/20/24 06:33 40 MG Enoxaparin Sodium 40 mg DAILY SC 11/19/24 10:00 11/20/24 09:42 40 MG Acetaminophen/ Hydrocodone Bitart 1 tab Q4HPRN PRN PO 11/18/24 14:00 11/19/24 10:27 1 TAB Oxycodone/ Acetaminophen 2 tab TID PRN PO 11/19/24 11:00 11/20/24 13:32 2 TAB Laboratory Results Laboratory Tests 11/19/24 05:48 11/20/24 06:48 Urinalysis Test 11/18/24 18:17 Urine Color Light-yellow (Yellow) Urine Clarity Clear (Clear) Urine pH 6.5 (5.0-9.0) Urine Specific [place] 1.015 (1.001-1.035) Urine Protein Negative (Negative) Urine Ketones Negative (Negative) Urine Blood Negative /uL (Negative) Urine Nitrite Negative (Negative) Urine Bilirubin Negative (Negative) Urine Urobilinogen Normal mg/dL (Negative) Urine Leukocyte Esterase Negative /uL (Negative) Urine RBC None seen /hpf (0 - 3) Urine Microscopic WBC 1 /HPF (0-3) Urine Squamous Epithelial Cells None seen /hpf (<5) Urine Bacteria None seen /hpf (None Seen) Urine Glucose Normal mg/dL (Normal) Assessment/Plan Assessment/Plan Acute chest pain to rule out CAD (HEART score 2) Mildly elevated troponin Chronic back pain Obesity Plan/Recommendation (Dr. Block ): Echo lvef 60 % mild lvh normal rv function but mild enlargement no severe valve abnormalities noted * Chest pain protocol-- Continue telemetry monitoring * Transthoracic echocardiogram to evaluate cardiac function and rule out structural disease * Scheduled Cardiolite stress test for ischemic evaluation * If both studies are unremarkable patient may be cleared from a cardiac standpoint * Counseled on risk factor modifications such as weight loss diet and exercise * Continue pain management for chronic back pain per primary team Plan discussed with: Patient My Orders Orders - LOUISE ESCALANTE Procedure Category Date Status Time Cardiolite Multiple NM 11/19/24 Logged 17:17 Date of Service: Nov 20, 2024 Billing Provider: MAG BLOCK MD Common Visit Codes: NOT BILLABLE Consultation Codes: [id number] CONSULT <45MIN LOUISE ESCALANTE Nov 20, 2024 16:44
[2024-11-21 01:00] VITALS: BP 124/76; PULSE 78; RESP 17; TEMP 97.9; O2SAT 95
[2024-11-21 05:00] VITALS: BP 117/78; PULSE 80; RESP 18; TEMP 97.8; O2SAT 94
[2024-11-21 08:00] VITALS: PULSE 60; PULSE 81; O2SAT 99
[2024-11-21 09:00] VITALS: BP 109/62; PULSE 60; RESP 20; TEMP 98.7; O2SAT 99
[2024-11-21] MEDS: REGADENOSON 0.4 MG/5 ML SYRG IV ONE ×2 (10:50→11:04)
--- NOTE | 2024-11-21 12:36 | DVHSR ---
APPROVED REPORT Exam: Nuclear Stress Test BMI: 0 Stress Test Details HR Max Heart Rate (APMHR): 181.251606 bpm Target HR (85% APMHR): 153.176422 bpm BP ECG Stress ECG Conclusion lvef 69% no severe ischemia noted mild anterior wall artifact/ fixed defect NM EXAM: Myocardial Perfusion REST/STRESS Imaging Protocol: Rest Tc-99m/Stress Tc-99m 1 day Resting Data Rest SPECT myocardial perfusion imaging was performed in supine position 70 minutes following the int ravenous injection of 11.3 mCi of Tc-99m Sestamibi. Time of rest injection: 0800 Time of rest imagin Administration Route: IV Administration Site: Right Arm Pharmacologic Stress Pharmacologic stress test was performed by injecting Regadenoson 0.4 mg IV push followed by the intra venous injection of 32.3 mCi of Tc-99m Sestamibi. Time of stress injection: 1030 Time of stress imagin Administration Route: IV Administration Site: Right AC Gated Stress SPECT was performed 60 minutes after stress injection. The images were gated to evaluate regional wall motion and calculate left ventricular ejection fracti on. Nuclear Conclusion Clinical Findings: negative for ischemia lvef 69% no severe ischemia noted mild anterior wall artifact/ fixed defect
--- NOTE | 2024-11-21 14:08 | DVHPN2 ---
Consult Progress Note Date Seen: Nov 21, 2024 Subjective Review of Systems: CVS:Normal, RESPIRATORY:Normal, MSK:Abnormal, NEURO:Normal Other Systems: C/o right sided chest wall pain, sharp in nature Objective vital signs Vital Sign Date Time Temp Pulse Resp B/P (MAP) Pulse Ox O2 Delivery O2 Flow Rate FiO2 11/21/24 09:00 98.7 60 20 109/62 (78) 99 98.7 11/21/24 08:00 Room Air* 0 21 Total Intake and Output 11/20/24 11/20/24 11/21/24 15:00 23:00 07:00 Intake Total 1300 ml 1000 ml Balance 1300 ml 1000 ml medications Current Medications Medications Dose Ordered Sig/Joseph Route Start Time Stop Time Status Last Admin Dose Admin Aspirin 81 mg DAILY PO 11/19/24 10:00 11/20/24 09:42 81 MG Atorvastatin Calcium 40 mg HS PO 11/18/24 22:00 11/20/24 20:36 40 MG Acetaminophen 650 mg Q6HP PRN PO 11/18/24 12:30 Ondansetron HCl 4 mg Q4HP PRN IV 11/18/24 12:30 Nitroglycerin 0.4 mg Q5MINP PRN SL 11/18/24 12:30 Morphine Sulfate 2 mg Q30M PRN IV 11/18/24 12:30 Gabapentin 100 mg TID PO 11/18/24 14:00 11/20/24 20:36 100 MG Pantoprazole Sodium 40 mg DAILY@0600 PO 11/19/24 06:00 11/20/24 06:33 40 MG Enoxaparin Sodium 40 mg DAILY SC 11/19/24 10:00 11/20/24 09:42 40 MG Acetaminophen/ Hydrocodone Bitart 1 tab Q4HPRN PRN PO 11/18/24 14:00 11/19/24 10:27 1 TAB Oxycodone/ Acetaminophen 2 tab TID PRN PO 11/19/24 11:00 11/21/24 12:24 2 TAB Examination: LUNGS:Normal, CVS:Normal, NEURO:Normal laboratory and microbiology Laboratory Tests 11/20/24 06:48 11/19/24 05:48 Test 11/19/24 05:48 Range/Units Serum Glucose 90 74-106 mg/dL Problem List/Assessment/Plan Problem List/Assessment/Plan Non-cardiac chest pain, musculoskeletal in nature Mildly elevated troponin Chronic back pain Dyslipidemia Obesity Plan/Recommendation (Dr. Sal ) * Transthoracic echocardiogram revealed LVEF 60% * Cardiolite stress test for ischemic evaluation, non-ischemic * Counseled on risk factor modifications such as weight loss diet and exercise * Continue pain management for chronic back pain per primary team There is no further cardiac work-up indicated at this time. signing off. Kindly call with any questions or concerns. Thank you for allowing us to care for this patient. Plan discussed with: Patient, Other Dietary Evaluation Review Recommendations by RD: Dietary education by RD Comments: 1) Continue cardiac diet 2) Encourage optimal PO intake 3) Refer to outpatient RD for weight management 4) Follow-up with cardiology 5) Continue to monitor I&O, labs, and skin integrity Expected Outcomes/Goals: 1) appetite and labs to improve 2) gradual wt loss 3) f/u in 3-5 days Date of Service: Nov 21, 2024 Billing Provider: SUE TEE Cardiology Common Codes: [id number] [facility](High SUE TEE Nov 21, 2024 14:08
[2024-11-21] MEDS ORDERED: BACL10TA PO (15:12)
--- NOTE | 2024-11-21 15:13 | DVHDS2 ---
Discharge Summary Date of Admission Nov 18, 2024 at 12:24 Date of Discharge: Nov 21, 2024 Labs/Diagnostic Data: Laboratory Results Test 11/20/24 06:48 11/19/24 05:48 11/18/24 18:17 11/18/24 09:44 White Blood Count 3.3 10^3/uL (4.4-10.8) Red Blood Count 5.43 10^6/uL (4.5-5.90) Hemoglobin 16.2 g/dL (13.5-17.5) Hematocrit 46.6 % (41.0-53.0) Mean Corpuscular Volume 85.7 fL (80.0-100.0) Mean Corpuscular Hemoglobin 29.8 pg (28.0-32.0) Mean Corpuscular Hemoglobin Concent 34.8 g/dL (32.0-36.0) Red Cell Distribution Width 14.2 % (11.8-14.3) Platelet Count 202 10^3/uL (140-450) Mean Platelet Volume 8.6 fL (6.9-10.8) Neutrophils (%) (Auto) 32.7 % (37.0-80.0) Lymphocytes (%) (Auto) 47.6 % (10.0-50.0) Monocytes (%) (Auto) 9.2 % (0.0-12.0) Eosinophils (%) (Auto) 9.7 % (0.0-7.0) Basophils (%) (Auto) 0.8 % (0.0-2.0) Neutrophils # (Auto) 1.1 10 ^3/uL (1.6-8.6) Lymphocytes # (Auto) 1.5 10 ^3/uL (0.4-5.4) Monocytes # (Auto) 0.3 10 ^3/uL (0-1.3) Eosinophils # (Auto) 0.3 10 ^3/uL (0-0.8) Basophils # (Auto) 0 10 ^3/uL (0-0.2) Nucleated Red Blood Cells 0.8 % Erythrocyte Sedimentation Rate 2 mm/hr (0-20) Sodium Level 138 mmol/L (136-145) Potassium Level 4.1 mmol/L (3.5-5.1) Chloride Level 103 mmol/L (98-107) Carbon Dioxide Level 26 mmol/L (20-31) Anion Gap 9 (5-15) Blood Urea Nitrogen 11 mg/dL (9-23) Creatinine 1.14 mg/dL (0.700-1.30) Glomerular Filtration Rate Calc 84 mL/min (>90) BUN/Creatinine Ratio 9.6 (10.0-20.0) Serum Glucose 90 mg/dL (74-106) Calcium Level 8.8 mg/dL (8.7-10.4) Magnesium Level 2.0 mg/dL (1.6-2.6) Troponin I High Sensitivity 54 ng/L (</=54) C-Reactive Protein High Sensitivity 0.04 mg/dL (<1.0) Triglycerides Level 82 mg/dL (< 150) Cholesterol Level 158 mg/dL (< 200) LDL Cholesterol 107 mg/dL (< 100) HDL Cholesterol 39 mg/dL (40-59) Urine Color Light-yellow (Yellow) Urine Clarity Clear (Clear) Urine pH 6.5 (5.0-9.0) Urine Specific [place] 1.015 (1.001-1.035) Urine Protein Negative (Negative) Urine Ketones Negative (Negative) Urine Blood Negative /uL (Negative) Urine Nitrite Negative (Negative) Urine Bilirubin Negative (Negative) Urine Urobilinogen Normal mg/dL (Negative) Urine Leukocyte Esterase Negative /uL (Negative) Urine RBC None seen /hpf (0 - 3) Urine Microscopic WBC 1 /HPF (0-3) Urine Squamous Epithelial Cells None seen /hpf (<5) Urine Bacteria None seen /hpf (None Seen) Urine Glucose Normal mg/dL (Normal) Urine Opiates Screen Neg (NEGATIVE) Urine Fentanyl Screen Neg (NEGATIVE) Urine Barbiturates Screen Neg (NEGATIVE) Urine Phencyclidine Screen Neg (NEGATIVE) Urine Amphetamines Screen Neg (NEGATIVE) Urine Benzodiazepines Screen Neg (NEGATIVE) Urine Cocaine Screen Neg (NEGATIVE) Urine Cannabinoids Screen Neg (NEGATIVE) D-Dimer, Quantitative < 0.19 mg/L FEU (0.0-0.49) Hemoglobin A1c 5.4 % A1C (<5.7) Thyroid Stimulating Hormone (TSH) 1.84 uIU/mL (0.55-4.78) Free Thyroxine (T4) Calculated 1.10 ng/dL (0.89-1.76) Other Laboratory Tests 11/20/24 06:48 11/19/24 05:48 Brief Hx & Hospital Course: Jose Bahena is a 38-year-old male with past medical history of appendectomy, chronic back pain and chronic right hip pain who presents to the ED with chest pain and shortness of breath that started 2 days ago, he reports that the pain is 5/10 sharp and intermittent in nature. He reports that the pain just "fades" away. He reports that the pain is nonradiating. He also reports that he takes Percocet for his chronic back pain and chronic right hip pain. He denies any fractures, trauma or injury. Patient denies any recent travels, recent sick contacts, recent ingestion of spoiled food, fever, chills, lightheadedness, weakness, dizziness, abdominal pain, nausea, vomiting, diarrhea, or urinary symptoms. 11/21: Patient presented with chest pain, described as heaviness, with shortness of breath, concerning for ACS and cardiac nature. Troponins were very borderline elevated which quickly plateaued to negative., echocardiogram also unconcerning. Nuclear med Cardiolite test done showing 69% EF, no reversible ischemia found. Patient is stable for discharge. Vital signs stable, unstable for discharge as per plan below. Diagnosis: Chest pain, ACS ruled out, costochondritis likely ACS ruled out NSTEMI likely type 2 Obesity History of Chronic back pain History of Chronic right hip pain History of appendectomy Plan: -Patient to take baclofen 10 mg twice daily for 7 days - for pain use 1st line Tylenol, second-line ibuprofen. -Continue to take other home medications not mentioned above. -Follow up with PCP to review discharge Condition at Discharge: Fair Final Diagnosis/Problems List Chest pain, ACS ruled out, costochondritis likely ACS ruled out NSTEMI likely type 2 Obesity History of Chronic back pain History of Chronic right hip pain History of appendectomy Discharge Disposition: Home Discharge Instruct/Medications Scheduled Bupropion Hcl (Wellbutrin Sr), 150 MG PO DAILY, (Reported) Gabapentin (Gabapentin), 1-2 CAP PO TID, (Reported) Hydroxyzine Hcl (Hydroxyzine Hcl), 50 MG PO TID, (Reported) [place] Carbonate ([place] Carbonate), 300 MG PO DAILY, (Reported) Naproxen (Naprosyn Tablet), 1 TAB PO BID, (Reported) Pantoprazole Sodium Sesquihydr (Pantoprazole Sodium Dr), 1 TAB PO DAILY, (Reported) Discharge Statement: "Patient was advised to return to the ER or call 911 if any headaches, dizziness, shortness of breath, chest pain, abdominal pain, bleeding, fevers, or worsening of medical condition. Patient was counseled about treatment plan, medications, possible side effects, patientverbalized understanding. All questions were answered to the best of my ability. This discharge took greater then 30 minutes in planning, reviewing documentation, counseling the patient, and discussing with other team members." ASSESSMENT ASSESSMENT Assessment Date of Service: Nov 21, 2024 Billing Provider: GALILEA REILLY MD Common Visit Codes: 99093-GJQ/OBS DISCH DAY >30min GALILEA REILLY MD Nov 21, 2024 15:13
[2024-11-21 16:17] VITALS: BP 115/73; PULSE 74; RESP 20; TEMP 97.5; O2SAT 97
[2024-11-21 16:44] VITALS: BP 115/73; PULSE 74; RESP 20; TEMP 97.5; O2SAT 97
== END 2024-11-21 17:00 | disposition home or self-care (01) | DRG 203 ==
LOC: ER 09:28 → OVERFLOW 12:24 → TELE-CENTR 18:35
PROVIDERS: ADMIT Student in an Organized Health Care Education/Training Program; ATTEND Student in an Organized Health Care Education/Training Program
DX: M94.0 Chondrocostal junction syndrome [Tietze] (principal); I21.A1 Myocardial infarction type 2; D72.819 Decreased white blood cell count, unspecified; E66.9 Obesity, unspecified; G89.29 Other chronic pain; E78.5 Hyperlipidemia, unspecified; Z90.49 Acquired absence of other specified parts of digestive tract; Z83.3 Family history of diabetes mellitus; Z82.49 Family history of ischemic heart disease and other diseases of the circulatory system; Z80.8 Family history of malignant neoplasm of other organs or systems; Z68.35 Body mass index [BMI] 35.0-35.9, adult
CPT/HCPCS: 36415; 71045; 78452; 80048; 80061; 80307; 81001; 83036; 83735; 84439; 84443; 84484; 85025; 85379; 85652; 86141; 93005; 93017; 93306; 99291; G0378